=== PATIENT | male | born 1955 | race Caucasian/White ===

== ENCOUNTER 2018-01-22 18:33 | Inpatient (IN) | payer OTHER ==
[~2018-01-22] VITALS: Ht 167.6 cm; Wt 68.9 kg
[2018-01-22] MEDS ORDERED: NITROGLYCERIN OINT 1 GM PACKET TP ONE ×2 (18:55→19:00)
[2018-01-22] MEDS ORDERED: ASPIRIN 81 MG TAB.CHEW ONE (18:55)
[2018-01-22] MEDS ORDERED: ASPIRIN 81 MG TAB.CHEW PO ONE (19:00)
[2018-01-22 19:16] LABS: BASOPHILS # (AUTO) 0.1 K/uL (0.0-8.0); EOSINOPHILS # (AUTO) 0.2 K/uL (0.0-0.7); EOSINOPHILS % (AUTO) 2.4 % (0.0-7.0); HEMATOCRIT 43.9 % (36.7-47.1); HEMOGLOBIN 15.1 g/dL (12.5-16.3); LYMPHOCYTES # (AUTO) 2.6 K/uL (20.0-40.0); LYMPHOCYTES % (AUTO) 36.2 % (20.5-51.5); MEAN CORPUSCULAR HEMOGLOBIN 31.5 uug (23.8-33.4); MEAN CORPUSCULAR HGB CONC 34 g/dL (32.5-36.3); MEAN CORPUSCULAR VOLUME 91.3 fL (73.0-96.2); MONOCYTES # (AUTO) 0.5 K/uL (2.0-10.0); MONOCYTES % (AUTO) 6.2 % (0.0-11.0); NEUTROPHILS % (AUTO) 54.2 % (38.5-71.5); PLATELET COUNT (AUTO) 173 K/uL (152-348); RED BLOOD CELL COUNT(AUTO) 4.81 MIL/uL (4.06-5.63); WHITE BLOOD COUNT (AUTO) 7.3 K/uL (3.6-10.2)
[2018-01-22 19:18] LABS: CREATININE 1.2 mg/dL (0.6-1.3); POTASSIUM 3.6 mmol/L (3.5-5.1)
[2018-01-22 19:31] LABS: BILIRUBIN,DIRECT 0.1 mg/dL (0.0-0.2); BILIRUBIN,TOTAL 0.4 mg/dL (0.2-1.0)
--- NOTE | 2018-01-22 19:45 | NUR ---
REPORT TAKEN FROM DAY SHIFT RN. ASSUMING PT CARE AT THIS TIME.
[2018-01-22] MEDS ORDERED: METOPROLOL TARTRATE 50 MG TABLET PO ONE (20:30)
[2018-01-22] MEDS ORDERED: ENOXAPARIN SODIUM 30 MG/0.3 ML DISP.SYRIN SUBCUT ONE (20:30)
[2018-01-22] MEDS ORDERED: ENOXAPARIN SODIUM 100 MG/ML DISP.SYRIN SQ ONE (20:31)
[2018-01-22] MEDS ORDERED: METOPROLOL TARTRATE 50 MG TABLET ONE (20:31)
--- NOTE | 2018-01-22 21:17 | NUR ---
Pt. admitted to TELE, under care of Dr. ADDISON Belongs List completed
[2018-01-22] MEDS ORDERED: MAG HYDROX/AL HYDROX/SIMETH 30 ML LIQUID UDC PO PRN (21:30)
[2018-01-22] MEDS ORDERED: ONDANSETRON 4 MG/2 ML VIAL IV PRN (21:30)
[2018-01-22] MEDS ORDERED: ATORVASTATIN 40 MG TABLET PO SCH (21:30)
[2018-01-22] MEDS ORDERED: ACETAMINOPHEN 325 MG TABLET PO PRN (21:30)
[2018-01-22] MEDS ORDERED: MAGNESIUM HYDROXIDE 30 ML LIQUID UDC PO PRN (21:30)
--- NOTE | 2018-01-22 21:30 | NUR ---
ADMITTED PATIENT IN THE TELE UNIT UNDER THE CARE OF DR. NI. BELONGINGS LIST DONE.
[2018-01-22 21:34] VITALS: BP 125/71
--- NOTE | 2018-01-22 23:16 | NUR ---
PATIENT TROPONIN 1.[address] NI, STATED HE WILL CONTACT THE RAILWAY ENGINEER.
[2018-01-23] VITALS: BP 108/64
[2018-01-23] MEDS: MORPHINE SULFATE 4 MG/1 ML DISP.SYRIN IV PRN ×2 (06:06→09:53)
--- NOTE | 2018-01-23 06:15 | NUR ---
PATIENT ALERT AWAKE, COMPLAIN OF LEFT CHEST PRESSURE, 8/10 GIVEN MORPHINE 2MG IV, WITH HELP AFTER 30 MIN, RYTHM SINUS RYTHM 61 AT THIS TIME, CONT TO MONITOR.
[2018-01-23 06:36] LABS: BASOPHILS # (AUTO) 0.1 K/uL (0.0-8.0); BASOPHILS % (AUTO) 0.9 % (0.0-2.0); EOSINOPHILS # (AUTO) 0.2 K/uL (0.0-0.7); HEMATOCRIT 41.2 % (36.7-47.1); LYMPHOCYTES # (AUTO) 2.5 K/uL (20.0-40.0); LYMPHOCYTES % (AUTO) 27.9 % (20.5-51.5); MEAN CORPUSCULAR HEMOGLOBIN 30.8 uug (23.8-33.4); MEAN CORPUSCULAR HGB CONC 34 g/dL (32.5-36.3); MEAN CORPUSCULAR VOLUME 90.8 fL (73.0-96.2); MONOCYTES # (AUTO) 0.7 K/uL (2.0-10.0); NEUTROPHILS # (AUTO) 5.5 K/uL (1.8-8.9); NEUTROPHILS % (AUTO) 61.2 % (38.5-71.5); PLATELET COUNT (AUTO) 163 K/uL (152-348); RED BLOOD CELL COUNT(AUTO) 4.54 MIL/uL (4.06-5.63)
[2018-01-23] MEDS ORDERED: PANTOPRAZOLE SODIUM 40 MG TABLET.DR PO SCH (07:00)
[2018-01-23 07:19] LABS: THYROID STIMULATING HORMONE 2.265 mIU/mL (0.358-3.740)
[2018-01-23 08:00] VITALS: BP 115/64
--- NOTE | 2018-01-23 08:00 | NUR ---
AWAKE ALERT COOPERATE WELL NO SOB OR PAIN RESTING WELL WITH CALL LIGHT IN REACH AND INSTRUCTION TO CALL WHEN NEED FAMILY AT BEDSIDE VS TAKEN STABLE HL INTACT LAC #20
--- NOTE | 2018-01-23 08:00 | NUR ---
AWAKE ALERT NO SOB OR PAIN AMOS WELL OOB UP AND AMBULATE WELL IN THE [address] RESTING WELL IN ROOM WITH CALL LIGHT IN REACH AND INSTRUCTION TO USE WHEN NEEDED
[2018-01-23 08:03] LABS: BILIRUBIN,TOTAL 0.3 mg/dL (0.2-1.0); CREATININE 0.9 mg/dL (0.6-1.3); MAGNESIUM 2.1 mg/dL (1.8-2.4); PHOSPHOROUS 3.7 mg/dL (2.5-4.9); POTASSIUM 3.9 mmol/L (3.5-5.1); TOTAL PROTEIN, SERUM 7.3 g/dL (6.4-8.2)
[2018-01-23] MEDS ORDERED: METOPROLOL TARTRATE 25 MG TABLET PO SCH (09:00)
[2018-01-23] MEDS ORDERED: ASPIRIN EC 81 MG TABLET.DR PO SCH (09:00)
[2018-01-23] MEDS ORDERED: ENOXAPARIN SODIUM 80 MG/0.8 ML DISP.SYRIN SQ SCH (09:00)
--- NOTE | 2018-01-23 10:00 | NUR ---
PATIENT AND FAMILY WAS VERY CONCERN ABOUT NO FIG CAPRIFIER MD SEEN HIM YET ,EXPLAINED TO PATIENT AND FAMILY THAT FIG CAPRIFIER WAS AWARE OF LAB RESULT THIS AM AND WILL SEE HIM LATER ON DR GARRIDO WAS INFORM OF SITUA TION
--- NOTE | 2018-01-23 11:00 | NUR ---
DR GARRIDO SEE PATIENT AT THIS TIME AND EXPLAINED TO PT AND FAMILY ,VERBALIZES UNDERSTAND EPIC BEACON ANALYST WORKING ON PATIENT REQUEST
[2018-01-23 11:30] VITALS: BP 105/65
[2018-01-23 14:10] VITALS: BP 107/71
[2018-01-23] MEDS: NITROGLYCERIN 0.4 MG/TAB BOTTLE SL PRN ×2 (14:10→14:18)
--- NOTE | 2018-01-23 14:10 | NUR ---
PATIENT C/O OF PRESSURE OF CHEST AGAIN VS TAKEN AND MEDICATION NTG SUB 1 TAB GIVEN AND CLOSED OBSERVATION
[2018-01-23 14:15] VITALS: BP 108/72
--- NOTE | 2018-01-23 14:16 | NUR ---
STATE FEEL A LITLE BETTER GIV ANOTHER 1 TAB OF NTG
[2018-01-23 14:18] VITALS: BP 108/64
--- NOTE | 2018-01-23 14:25 | NUR ---
STATE NO CHEST PRESSURE AT THIS TIME VS TAKEN STABLE RESTING
--- NOTE | 2018-01-23 15:00 | NUR ---
PATIENT DECISION TO GO HOME AND STATE WILL GO TO SEE HIS OWN MD AND AGREE TO SIGNS AMA FORM , I HAVE EXPLAINED TO PATIENT ,THE RISK OF LEAVING THE HOSPITAL AT THIS TIME HE SAID HE WAS UNDERSTAND BUT STILL WANT TO GO HOME AMA FORM WAS SIGNS AND FAMILY WAS AWARE AND AGREE TO TAKE PATIENT TODAY HL WAS DISCONTINUE PRIOR D/C TODAY CONDITION STABLE NO CHEST PAIN OR SOB AT THIS TIME EDUCATION GIVEN AND COPY OF EKG/ECCHO GIVEN REQUEST
--- NOTE | 2018-01-23 15:00 | NUR ---
PATIENT LEAVING THE HOSPITAL ACCOMPANY WITH FAMILY
== END 2018-01-23 15:00 | disposition left against medical advice (07) | DRG 190 ==
LOC: ER 18:34 → TELE 20:49
PROVIDERS: ADMIT Internal Medicine; ATTEND Internal Medicine
DX: I21.4 Non-ST elevation (NSTEMI) myocardial infarction (principal); J98.11 Atelectasis; E78.5 Hyperlipidemia, unspecified; F17.210 Nicotine dependence, cigarettes, uncomplicated; Z82.49 Family history of ischemic heart disease and other diseases of the circulatory system; I25.119 Atherosclerotic heart disease of native coronary artery with unspecified angina pectoris; E78.00 Pure hypercholesterolemia, unspecified
CPT/HCPCS: 36415; 70030-TC; 71045; 83735; 84100; 84443; 85025; 85730; 93005; 93307; A4663; J1650; J2270